=== PATIENT | male | born 1995 | race Caucasian/White ===

== ENCOUNTER 2020-12-05 15:29 | Outpatient (REF) | payer SELFPAY ==
[2020-12-07 15:38] LABS: COVID-19 RT-PCR UVMMC Result Negative (Negative)
== END 2020-12-05 15:30 | disposition home or self-care (01) ==
LOC: LBN 15:29
PROVIDERS: Visit Provider Nurse Practitioner Family
DX: Z20.822 Contact with and (suspected) exposure to COVID-19 (principal)
CPT/HCPCS: U0003

== ENCOUNTER 2021-05-02 19:18 | Emergency (ER) | payer SELFPAY ==
[2021-05-02 19:26] VITALS: BP 145/87; PULSE 87; RESP 18; TEMP 36.8; O2SAT 99
--- NOTE | 2021-05-02 20:05 | ED.GENADUL_ITS ---
Discharge Plan Disposition Patient Disposition: HOME Condition: Stable Discharge Details Clinical Impression: Dental infection Primary Care Provider: Unknown,Unknown ED Provider: Carlos Gaxiola Home Meds and New Rx's Prescriptions: New amoxicillin 875 mg tablet 875 mg PO BID Qty: 20 RF: 0 Discharge Instructions Instructions: Dental Abscess (ED) Additional Instructions: Amoxicillin as directed. [id number] Tylenol and/or Motrin as directed for discomfort. Cool and/or warm compresses every 2 hours for 20 minutes. Please watch for new or worsening symptoms and return to the ER for any concerns. Lastly, I would like you to contact your dentist who you are scheduled to see in June to see if they can see you any sooner. Medical Decision Making 25-year-old gentleman, current smoker, presents for right dental pain, lower, for the past 5 days. Patient has poor dentition at baseline. Clinically he appears well, nontoxic, airways patent, no trismus. Patient does have mild facial swelling and tenderness. No pointing abscess. No indication for I&D. Will initiate antibiotic therapy. We discussed [id number] Tylenol and/or Motrin, Orajel, salt water swish and spit, and cool and/or warm compresses. Standard discharge and return precautions provided. This documentation was generated using [employer] dictation system, please disregard any oddities of phrase or misspellings. Medical Records Medical records reviewed: Yes I reviewed the patient's medical records. HPI General Mode of arrival: ambulatory . Date/Time Provider Initiated Documentation: 05/02/21 20:00 . Limitations to Documentation: no limitations . Information obtained by: patient . HPI Narrative: This is a 25-year-old gentleman, current smoker, presenting for right lower dental pain and swelling over the past 5 days. Patient states that he contacted his dentist but cannot be seen until June. He denies fever, difficulty speaking or swallowing. No difficulty breathing. Has not taken any dumx-gya-iuxqoin medications for his sy mptoms. Patient reports that his teeth are poor at baseline and he needs a fair amount of dental work. Related Data Home Medications Medication Instructions Recorded Confirmed amoxicillin 875 mg PO BID #20 tab 05/02/21 Previous Rx's Medication Instructions Recorded amoxicillin 875 mg PO BID #20 tab 05/02/21 Allergies Allergy/AdvReac Type Severity Reaction Status Date / Time No Known Allergies Allergy Verified 12/05/20 13:32 General Stated Complaint: DentalOral MOMO: 4 Review of Systems Constitutional Constitutional: Denies fever(s) and Denies headache(s) ENT Ears, Nose, Mouth, and Throat: Denies headache(s), Denies neck pain and Denies sore throat Gastrointestinal Gastrointestinal: Denies nausea and Denies vomiting Musculoskeletal Musculoskeletal: Denies neck pain Integumentary/Breasts Skin/Breast: Denies erythema Neurologic Neurologic: Denies headache(s) PFSH All Active Problems (Updated 05/02/21 @ 20:10 by YONATAN Ortega) Dental infection (Acute) Surgical History Repair of inguinal hernia Tonsillectomy Social History Smoking/Tobacco Use Status: Current every day Tobacco Type: cigarettes Smoking risk assessment performed?: Yes Alcohol Intake: current Alcohol Intake frequency: holidays/special occasions only Drug use: Daily Substance use type: marijuana Do you feel safe at home: Yes Do you feel safe in your relationship?: Yes Exam Const General: cooperative, healthy appearing, comfortable and no acute distress Orientation: alert, awake and oriented x3 HENMT Head: normal to inspection, normocephalic and atraumatic Ears: external ears normal, TM's normal bilaterally and EAC's normal General nose exam: external nose normal Face images: 1. Mild swelling and discomfort. No pointing abscess, erythema, warmth or fluctuance Mouth: moist mucous membranes Teeth and gingiva: poor dentition (Throughout. Tooth 31 was small posterior fracture) Throat: posterior oropharynx normal Eyes General: appearance normal, both eyes and all related structures Conjunctivae: conjunctivae normal Neck Neck: normal visual inspection, full ROM, no lymphadenopathy, trachea midline, supple and nontender Resp Effort & Inspection: normal respiratory effort and able to speak in complete sentences Auscultation: clear to auscultation bilaterally Cardio Rate: regular rate Rhythm: regular rhythm Skin General skin exam: no rashes or lesions noted Neuro General: patient alert, patient awake, moves all extremities and no focal motor deficits Sensory Exam: no sensory deficits noted Psych Appearance: grossly normal Mental Status: mental status grossly normal Course Vital Signs Vital signs: Vital Signs Temperature 36.8 C 05/02/21 19:26 Pulse 87 05/02/21 19:26 Respiratory Rate 18 05/02/21 19:26 Blood Pressure 145/87 H 05/02/21 19:26 Pulse Oximetry 99 05/02/21 19:26 Temperature 36.8 C 05/02/21 19:26 Temperature Source Oral 05/02/21 19:26 Pulse 87 05/02/21 19:26 Respiratory Rate 18 05/02/21 19:26 Respiratory Effort 05/02/21 19:32 Blood Pressure 145/87 H 05/02/21 19:26 Blood Pressure Position Sitting 05/02/21 19:26 Pulse Oximetry 99 05/02/21 19:26 Oxygen Delivery Method Room Air 05/02/21 19:26 Oxygen Flow Rate 0 05/02/21 19:26 Pain Level 7 05/02/21 19:32 Comment 05/02/21 19:26
[2021-05-02] MEDS: Amoxicillin 875 MG TAB PO (20:07)
== END 2021-05-02 20:19 | disposition home or self-care (01) ==
PROVIDERS: Emergency Provider Physician Assistant
DX: K04.7 Periapical abscess without sinus (principal)
CPT/HCPCS: 99283

== ENCOUNTER 2021-05-28 10:39 | Outpatient (CLI) | payer SELFPAY ==
--- NOTE | 2021-05-28 10:30 | RT.EKG_ITS ---
APPROVED REPORT Exam: Resting ECG Reason for Exam: Chest Pain Patient Location: O HR:75 bpm ECG Measurements Heart Rate 75 AXIS NJ 159 P 75 QRSd 106 QRS 5 QT 368 T 57 QTc 410 Conclusion Sinus rhythm...normal P axis, V-rate 60- 99 ST elev, probable normal early repol pattern...ST elevation, age<55 Normal Electrocardiogram
[2021-05-30 14:53] LABS: COVID-19 RT-PCR UVMMC Result Positive (Negative)
== END 2021-05-28 10:40 | disposition home or self-care (01) ==
LOC: DI.CM 10:47
PROVIDERS: Visit Provider Nurse Practitioner Family
DX: R07.89 Other chest pain (principal); Z20.822 Contact with and (suspected) exposure to COVID-19
CPT/HCPCS: 93010; U0003

== ENCOUNTER 2022-01-29 10:54 | Inpatient (IN) | payer SELFPAY ==
[2022-01-29] VITALS (27 sets, daily range): BP systolic 115–144; BP diastolic 72–100; PULSE 84–133; RESP 11–29; TEMP 36.6–37.8; O2SAT 96–100
--- NOTE | 2022-01-29 10:45 | RT.EKG_ITS ---
APPROVED REPORT Exam: Resting ECG Reason for Exam: sob, chest pain Patient Location: E HR:121 bpm ECG Measurements Heart Rate 121 AXIS RI 145 P 73 QRSd 97 QRS 241 QT 310 T 60 QTc 440 Conclusion Sinus tachycardia...rate> 99 Probable left atrial enlargement...P >50mS, <-0.10mV V1 Left anterior fascicular block...axis(240,-40), init forces inf
--- NOTE | 2022-01-29 11:00 | DI.RAD_ITS ---
Exam(s) XR PORTABLE CHEST AP EXAM: XR PORTABLE CHEST AP CLINICAL HISTORY: L sided chest pain, sob TECHNIQUE: 2D digital imaging was performed. COMPARISON: CT CHEST ABD PELVIS WITH CONTRAST from 10/02/2016 FINDINGS: There is a large left pneumothorax with near complete collapse of the lung medially and inferiorly. There is slight mediastinal shift toward the right. The right lung appears clear. No pleural effusi on is seen. No rib fractures are identified. The heart size is normal. IMPRESSION: Large left pneumothorax. Results of this exam have been verbally communicated with the emergency department provider. DATA REPOSITORY: RADIATION DOSE DELIVERED:
[2022-01-29 11:23] LABS: Source Nasal/Nares
--- NOTE | 2022-01-29 11:24 | W.ED.GENAD ---
Discharge Plan Disposition Patient Disposition: [facility] INPATIENT Condition: Stable Discharge Details Clinical Impression: Spontaneous pneumothorax Admit Date/Time: 01/29/22 12:42 Admit Provider: Samantha Martell Attending Provider: Samantha Martell Primary Care Provider: Unknown,Unknown ED Provider: Chi Varela Medical Decision Making <YONATAN Ortega - Last Filed: 01/29/22 13:30> 26-year-old male, denies significant medical history, and vapes daily, presents for sudden left-sided chest pain and shortness of breath that began yesterday upon standing. Breath sounds diminished on the left, tachycardia. Most concerning for spontaneous pneumothorax. Plan to obtain IV access, obtain a cardiac work-up, Dr. Varela at bedside to perform ultrasound, concerning for left pneumothorax. Awaiting portable chest x-ray X-ray reveals pneumothorax. Patient moved to room 3, Dr. Varela placed chest tube, please see his note. Case then discussed with Dr. Martell, surgical team, who is agreeable to admission. This documentation was generated using [employer] system, please disregard any oddities of phrase or misspellings. Medical Records Medical records reviewed: Yes I reviewed the patient's medical records. Imaging Data Radiologic Study: Attestation: I personally reviewed and interpreted this imaging study as follows: Imaging: X-Ray Radiologist's impression: Exam(s) XR PORTABLE CHEST AP EXAM: XR PORTABLE CHEST AP CLINICAL HISTORY: L sided chest pain, sob TECHNIQUE: 2D digital imaging was performed. COMPARISON: CT CHEST ABD PELVIS WITH CONTRAST from 10/02/2016 FINDINGS: There is a large left pneumothorax with near complete collapse of the lung medially and inferiorly. There is slight mediastinal shift toward the right. The right lung appears clear. No pleural effusion is seen. No rib fractures are identified. The heart size is normal. IMPRESSION: Large left pneumothorax. Results of this exam have been verbally communicated with the emergency department provider. Radiologic Study #2: Attestation: I personally reviewed and interpreted this imaging study as follows: Imaging: X-Ray Radiologist's impression: Exam(s) XR PORTABLE CHEST AP EXAM: XR PORTABLE CHEST AP CLINICAL HISTORY: s/p chest tube insertion TECHNIQUE: 2D digital imaging was performed. COMPARISON: CR XR PORTABLE CHEST AP from 01/29/2022 FINDINGS: A left-sided chest tube has been inserted. The pigtail ARDS in the left lower lung field. LUNGS: The left lung is now re-expanded and clear. No pneumothorax is visible. HEART: Normal. AORTA: Normal. BONES: Unremarkable for age. Soft tissues: Unremarkable. IMPRESSION: No visible pneumothorax status post placement of left chest tube. Lab Data Lab results reviewed: Yes I reviewed the patient's lab results. Labs: Laboratory Tests Range/Units 01/29/22 01/29/22 01/29/22 11:07 11:18 11:18 WBC (4.4-10.8) 10^3/uL 11.08 H RBC (4.36-5.78) 10^6/uL 5.71 Hgb (13.5-17.5) g/dL 17.5 Hct (40.0-50.0) % 50.8 H MCV (80-95) fL 89 MCH (27.0-33.0) pg 30.6 MCHC (32.0-36.0) % 34.4 RDW (11.8-14.1) % 11.9 Plt Count (130-400) 10^3/uL 333 MPV (8.0-11.0) fL 9.9 Immature Gran % 0.2 Neutrophils % 72.4 Lymphocytes % 15.7 Monocytes % 8.1 Eosinophils % 3.1 Basophils % 0.5 Nucleated RBC % (0.0-0.3) % 0.0 Absolute Neutrophils (1.2-6.7) 10^3/uL 8.02 H Absolute Lymphocytes (1.2-3.4) 10^3/uL 1.74 Absolute Monocytes (0.1-0.8) 10^3/uL 0.90 H Absolute Eosinophils (0.0-0.7) 10^3/uL 0.34 Absolute Basophils (0.0-0.2) 10^3/uL 0.06 PT (9.3-11.0) sec INR (0.9-1.1) APTT (21.0-27.5) sec D-Dimer Cancelled Sodium (136-145) mmol/L 140 Potassium (3.5-5.1) mmol/L 4.4 Chloride (98-107) mmol/L 103 Carbon Dioxide (21.0-32.0) mmol/L 27.9 Anion Gap (3-11) mmol/L 9.1 BUN (7-18) mg/dL 17 Creatinine (0.70-1.30) mg/dL 1.0 Est GFR (CKD-EPI 2020) (mL/min/1.73m2) 106.45 Glucose (74-106) mg/dL 109 H Calcium (8.5-10.1) mg/dL 9.7 Magnesium (1.8-2.4) mg/dL 1.9 Total Bilirubin (0.2-1.0) mg/dL 0.9 AST (15-37) U/L 23 ALT (16-63) U/L 26 Alkaline Phosphatase (46-116) U/L 101 Troponin I (<or=60) ng/L < 50 NT-Pro-B Natriuret Pep (<300) pg/mL 37 Total Protein (6.4-8.2) g/dL 8.1 Albumin (3.4-5.0) g/dL 4.6 COVID-19 Source SARS-CoV-2 (PCR) (Negative) Range/Units 01/29/22 01/29/22 11:18 11:18 WBC (4.4-10.8) 10^3/uL RBC (4.36-5.78) 10^6/uL Hgb (13.5-17.5) g/dL Hct (40.0-50.0) % MCV (80-95) fL MCH (27.0-33.0) pg MCHC (32.0-36.0) % RDW (11.8-14.1) % Plt Count (130-400) 10^3/uL MPV (8.0-11.0) fL Immature Gran % Neutrophils % Lymphocytes % Monocytes % Eosinophils % Basophils % Nucleated RBC % (0.0-0.3) % Absolute Neutrophils (1.2-6.7) 10^3/uL Absolute Lymphocytes (1.2-3.4) 10^3/uL Absolute Monocytes (0.1-0.8) 10^3/uL Absolute Eosinophils (0.0-0.7) 10^3/uL Absolute Basophils (0.0-0.2) 10^3/uL PT (9.3-11.0) sec 9.9 INR (0.9-1.1) 1.0 APTT (21.0-27.5) sec 24.7 D-Dimer Sodium (136-145) mmol/L Potassium (3.5-5.1) mmol/L Chloride (98-107) mmol/L Carbon Dioxide (21.0-32.0) mmol/L Anion Gap (3-11) mmol/L BUN (7-18) mg/dL Creatinine (0.70-1.30) mg/dL Est GFR (CKD-EPI 2020) (mL/min/1.73m2) Glucose (74-106) mg/dL Calcium (8.5-10.1) mg/dL Magnesium (1.8-2.4) mg/dL Total Bilirubin (0.2-1.0) mg/dL AST (15-37) U/L ALT (16-63) U/L Alkaline Phosphatase (46-116) U/L Troponin I (<or=60) ng/L NT-Pro-B Natriuret Pep (<300) pg/mL Total Protein (6.4-8.2) g/dL Albumin (3.4-5.0) g/dL COVID-19 Source Nasal/Nares SARS-CoV-2 (PCR) (Negative) Negative ECG Data Attestation: I personally reviewed and interpreted this ECG (s) as follows: Interpretation: Sinus tachycardia, ventricular of 121. No STEMI <Chi Varela MD - Last Filed: 01/29/22 13:20> Date: 01/29/22 Time: 12:29 Note: Patient seen, examined, and discussed with YONATAN Gaxiola. I agree with treatment plan as discussed/documented. [id number] ultrasound of the lungs was performed and interpreted by me: There is an absence of lung sliding concerning for pneumothorax on the left. Chest x-ray was reviewed interpreted by me and reveals pneumothorax with complete lung collapse on the left. Patient provided verbal and written consent to emergent chest tube placement. Patient was given fentanyl 50 mcg for pain and Versed 1 mg as anxiolytic. Percutaneous chest tube was placed without complication and secured in place. Sterile dressing applied. Patient initially connected to wall suction and had significant discomfort. Will suction discontinued and remains on waterseal. --Patient now hemodynamically stable. Heart rate improved and blood pressure normal. 1315 --chest x-ray was reviewed and interpreted by me: AP view demonstrates appropriate position of pigtail catheter with resolution of pneumothorax. Case was discussed with Dr. Martell who is at bedside. She will admit the patient. Care transitioned to Dr. Martell at time of admission. Radiology interpretation of x-rays pending at time of admission. HPI <YONATAN Ortega - Last Filed: 01/29/22 13:30> General Mode of arrival: ambulatory. Date/Time Provider Initiated Documentation: 01/29/22 11:05. Limitations to Documentation: no limitations. Information obtained by: patient. History of Present Illness 26 year old M presents to the emergency department with the chief complaint of L chest pain/sob, described as moderate, with intensity rated at 7. Quality is described as sharp, and is localized to the chest and left. Patient neck. Patient started experiencing this hour(s) (20) and it has been constant. No relieving factors improve symptom(s), Other factors that worsen symptoms (Breathing) . Patient notes no other symptoms.. Patient did receive the following treatments prior to arrival, none Related Data Home Medications Medication Instructions Recorded Confirmed Unknown [No Known Home Meds] 01/29/22 01/29/22 Allergies Allergy/AdvReac Type Severity Reaction Status Date / Time No Known Allergies Allergy Verified 01/29/22 12:53 General Stated Complaint: Chest Pain MOMO: 2 Review of Systems <YONATAN Ortega - Last Filed: 01/29/22 13:30> Constitutional Constitutional: Denies fever(s) and Denies headache(s) ENT Ears, Nose, Mouth, and Throat: Denies headache(s) and Reports neck pain Cardiovascular Cardiovascular: Reports chest pain and Reports dyspnea Respiratory Respiratory: Denies cough and Reports dyspnea Gastrointestinal Gastrointestinal: Denies abdominal pain, Denies nausea and Denies vomiting Musculoskeletal Musculoskeletal: Denies back pain and Reports neck pain Integumentary/Breasts Skin/Breast: Denies rash Neurologic Neurologic: Denies headache(s) PFSH <YONATAN Ortega - Last Filed: 01/29/22 13:30> All Active Problems (Updated 01/29/22 @ 11:36 by YONATAN Ortega) Spontaneous pneumothorax (Acute) Surgical History Repair of inguinal hernia Tonsillectomy Social History Smoking/Tobacco Use Status: Current every day Tobacco Type: cigarettes Smoking risk assessment performed?: Yes Alcohol Intake: current Alcohol Intake frequency: holidays/special occasions only Drug use: Daily Substance use type: marijuana Do you feel safe at home: Yes Do you feel safe in your relationship?: Yes Exam <YONATAN Ortega - Last Filed: 01/29/22 13:30> Const General: cooperative, healthy appearing and no acute distress Orientation: alert and awake HENFL Head: normal to inspection, normocephalic and atraumatic Mouth: moist mucous membranes Eyes General: appearance normal, both eyes and all related structures Conjunctivae: conjunctivae normal Neck Neck: normal visual inspection, full ROM, trachea midline, supple and nontender Chest Chest: normal inspection of the chest and normal palpation of entire chest wall Resp Effort & Inspection: able to speak in complete sentences and labored (mild) Auscultation: diminished lung sounds on the left Cardio Rate: tachycardic (130s) Rhythm: regular rhythm GI Palpation: soft and nontender Back/Spine/Pelvis Back: No back tenderness Skin General skin exam: no rashes or lesions noted Neuro General: patient alert, patient awake, moves all extremities and no focal motor deficits Cognition: normal cognition Speech: speech normal Gait: normal gait Sensory Exam: no sensory deficits noted Extrem General: normal to inspection, full ROM, capillary refill normal, no pedal edema and no calf tenderness Psych Appearance: grossly normal Mental Status: mental status grossly normal Course <YONATAN Ortega - Last Filed: 01/29/22 13:30> Vital Signs Vital signs: Vital Signs Temperature 36.8 C 01/29/22 10:59 Pulse 133 H 01/29/22 10:59 Respiratory Rate 22 01/29/22 10:59 Blood Pressure 135/91 H 01/29/22 10:59 Pulse Oximetry 96 01/29/22 10:59 Temperature 36.8 C 01/29/22 10:59 Temperature Source Oral 01/29/22 10:59 Pulse 133 H 01/29/22 10:59 Respiratory Rate 22 01/29/22 10:59 Respiratory Effort Short of Breath 01/29/22 11:06 Blood Pressure 135/91 H 01/29/22 10:59 Blood Pressure Position Sitting 01/29/22 10:59 Pulse Oximetry 96 10/05/22 10:59 Oxygen Delivery Method Room Air 01/29/22 10:59 Oxygen Flow Rate 0 01/29/22 10:59 Pain Level 6 01/29/22 10:59 Lab/Test Results Lab/Test Results: Laboratory Tests Range/Units 01/29/22 01/29/22 11:07 11:18 D-Dimer Cancelled COVID-19 Source Nasal/Nares <Chi Varela MD - Last Filed: 01/29/22 13:20> Chest Tube Chest Tube 1: Chest Tube Location: anterior axillary line Size of Malay Tube (mm): 14 Chest Tube Prep: betadine prep and sterile drapes applied Local Anesthetic: Lidocaine 1% Amount of anesthesia used (mL): 5 Incision Made With: #11 blade Post Procedure: sutured to skin and sterile dressing applied Post Procedure CXR?: Yes Patient Tolerated Procedure: Yes Complications: pain <Chi Varela MD - Last Filed: 01/29/22 13:20> Critical Care Time Critical Care Time: Yes Total Critical Care Time: 38 Attestation: I spent greater than 38 minutes addressing this patient's immediate life threats. Please see MDM section of note. This time was spent engaged in work directly related to the patient's care, exclusive of separate procedures, and failure to initiate these interventions would have likely resulted in clinically significant or life threatening deterioration in the patient's condition.
--- NOTE | 2022-01-29 11:30 | DI.RAD_ITS ---
Exam(s) XR PORTABLE CHEST AP EXAM: XR PORTABLE CHEST AP CLINICAL HISTORY: s/p chest tube insertion TECHNIQUE: 2D digital imaging was performed. COMPARISON: CR XR PORTABLE CHEST AP from 01/29/2022 FINDINGS: A left-sided chest tube has been inserted. The pigtail ARDS in the left lower lung field. LUNGS: The left lung is now re-expanded and clear. No pneumothorax is visible. HEART: Normal. AORTA: Normal. BONES: Unremarkable for age. Soft tissues: Unremarkable. IMPRESSION: No visible pneumothorax status post placement of left chest tube. DATA REPOSITORY: RADIATION DOSE DELIVERED:
[2022-01-29 11:40] LABS: Abs Immature Grans 0.02 10^3/uL (0.0-0.06); Absolute Basophil Count 0.06 10^3/uL (0.0-0.2); Absolute Eosinophil Count 0.34 10^3/uL (0.0-0.7); Absolute Lymphocyte Count 1.74 10^3/uL (1.2-3.4); Absolute Neutrophil Count 8.02 10^3/uL (1.2-6.7); Basophils % 0.5; Eosinophils % 3.1; HCT 50.8 % (40.0-50.0); HGB 17.5 g/dL (13.5-17.5); Immature Grans % 0.2; Lymphocytes % 15.7; MCH 30.6 pg (27.0-33.0); MCHC 34.4 % (32.0-36.0); MCV 89 fL (80-95); MPV 9.9 fL (8.0-11.0); Monocytes % 8.1; Neutrophils % 72.4; Platelet Count 333 10^3/uL (130-400); RBC 5.71 10^6/uL (4.36-5.78); RDW 11.9 % (11.8-14.1); RDW-SD 38.8 fL; WBC 11.08 10^3/uL (4.4-10.8)
[2022-01-29 11:44] LABS: PTT Activated 24.7 sec (21.0-27.5); Prothrombin Time 9.9 sec (9.3-11.0)
[2022-01-29] MEDS: Midazolam 2 MG/2 ML VIAL (11:45)
[2022-01-29 11:54] LABS: ALT 26 U/L (16-63); AST 23 U/L (15-37); Albumin 4.6 g/dL (3.4-5.0); Alkaline Phosphatase 101 U/L (46-116); Anion Gap 9.1 mmol/L (3-11); BUN 17 mg/dL (7-18); Bilirubin, Total 0.9 mg/dL (0.2-1.0); CO2 27.9 mmol/L (21.0-32.0); Calcium 9.7 mg/dL (8.5-10.1); Chloride 103 mmol/L (98-107); Estimated GFR 106.45 (mL/min/1.73m2); Glucose 109 mg/dL (74-106); Magnesium 1.9 mg/dL (1.8-2.4); NT-proBNP 37 pg/mL (<300); Potassium 4.4 mmol/L (3.5-5.1); Sodium 140 mmol/L (136-145); Total Protein 8.1 g/dL (6.4-8.2); Troponin I < 50 ng/L (<or=60)
[2022-01-29 12:02] LABS: COVID-19 PCR Negative (Negative)
[2022-01-29] MEDS: Lidocaine 2% Multi-Dose 50 ML VIAL (12:25)
[2022-01-29] MEDS: fentaNYL 100 MCG/2 ML VIAL (12:25)
--- NOTE | 2022-01-29 13:11 | DI.RAD_ITS ---
Exam(s) XR CHEST 1V IN DI DEPT EXAM: XR CHEST 1V IN DI DEPT CLINICAL HISTORY: chest pain, lateral view please TECHNIQUE: 2D digital imaging was performed. COMPARISON: No exams were available for comparison FINDINGS: A lateral view was performed the chest tube is located anteriorly in the left mid chest. No pneumoth orax is visible. Exam is somewhat limited by patient arm positioning. The lungs appear clear. IMPRESSION: chest tube projects anteriorly in the left chest DATA REPOSITORY: RADIATION DOSE DELIVERED:
[2022-01-29] MEDS: MORPHine 2 MG/ML SYR IVP (13:35)
[2022-01-29] MEDS: Normal Saline Flush 10 ML SYR ×2 (13:36→14:30)
[2022-01-29] MEDS: FAMOTIDINE 20 MG in Normal Saline 100 ML 400 MG IVPB (14:30)
[2022-01-29] MEDS: Enoxaparin 40 MG/0.4 ML SYR SC (14:32)
[2022-01-29] MEDS: Docusate Sodium 100 MG CAP PO ×2 (14:32→19:47)
[2022-01-29] MEDS: Acetaminophen 325 MG TAB 650 MG PO ×2 (15:30→19:47)
[2022-01-29] MEDS: traMADol 50 MG TAB PO (16:18)
--- NOTE | 2022-01-29 17:10 | HPE_ITS ---
Date of service: 01/29/22 Time of Service: 17:10 Assessment and Plan Assessment and plan (1) Spontaneous pneumothorax: Status: Acute Assessment and plan: Sae is a pleasant 26 year old male who smokes, that came to the ER with a spontaneous pneumothorax. I spend 45 minutes with Sae explaining what a pneumothorax was and how it happened. We discussed treatment plan and expectations. He needs to use his incentive spirometer. The goal is for him to get to at least 2000 if not higher. He needs to cough. Continue with Chest tube to suction until tomorrow CXR in the am History of Present Illness Consults Consult date: 01/29/22 Requesting physician: Chi Varela Param rative: Sae is a pleasant 26 year old who came to the ERR today due to SOB and chest pain. He tells me that last night as he was getting of the toilet he felt left sided chest pain and then became sob. He went to sleep not thinking much about it, but when he woke up and still had SOB he came to the ER. Lab work was essentially normal. CXR which I reviewed showed a complete collapse of his left lung. Chest tube was placed in the ER by Dr. Varela. Follow up CXR showed re-inflation of his lung. Review of Systems Constitutional Constitutional: Denies fever(s), Denies headache(s), Denies poor appetite and Denies weight loss Eyes Eyes: Denies change in vision ENT Ears, Nose, Mouth, and Throat: Denies dysphagia, Denies headache(s) and Denies hoarseness Cardiovascular Cardiovascular: Reports as per HPI Respiratory Respiratory: Reports as per HPI Gastrointestinal Gastrointestinal: Reports system reviewed and no additional complaints, except as documented and Denies dysphagia Genitourinary Genitourinary: Reports system reviewed and no additional complaints, except as documented Musculoskeletal Musculoskeletal: Reports system reviewed and no additional complaints, except as documented Integumentary/Breasts Skin/Breast: Reports system reviewed and no additional complaints, except as documented Neurologic Neurologic: Reports system reviewed and no additional complaints, except as documented and Denies headache(s) Psychiatric Psychiatric: Reports system reviewed and no additional complaints, except as documented Endocrine Endocrine: Reports system reviewed and no additional complaints, except as documented PFSH All Active Problems (Updated 01/29/22 @ 17:17 by Samantha Martell MD) Spontaneous pneumothorax (Acute) Medical History (Updated 01/29/22 @ 17:17 by Samantha Martell MD) Bey Gogo lesion (01/18/15) Surgical History (Updated 01/29/22 @ 17:17 by Samantha Martell MD) Status post inguinal hernia repair Status post tonsillectomy (05/28/15) Social History Smoking/Tobacco Use Status: Current every day Tobacco Type: cigarettes Smoking risk assessment performed?: Yes Alcohol Intake: current Alcohol Intake frequency: holidays/special occasions only Drug use: Daily Substance use type: marijuana Do you feel safe at home: Yes Do you feel safe in your relationship?: Yes Meds Allergies and Home Medications Allergies Allergy/AdvReac Type Severity Reaction Status Date / Time No Known Allergies Allergy Verified 01/29/22 12:53 Home Medications Medication Instructions Recorded Confirmed Type Unknown [No Known Home Meds] 01/29/22 01/29/22 History Exam Const General: cooperative, comfortable and no acute distress Orientation: alert and oriented x3 HENMT Head: normocephalic and atraumatic Eyes Pupils: PERRL Resp Effort & Inspection: normal respiratory effort Auscultation: clear to auscultation bilaterally Cardio Rate: regular rate Rhythm: regular rhythm Results Imaging Chest x-ray: image reviewed Labs Result diagrams: 01/29/22 11:18 01/29/22 11:18 Labs: Laboratory Results - last 24 hr 01/29/22 01/29/22 01/29/22 11:07 11:18 11:18 WBC 11.08 H RBC 5.71 Hgb 17.5 Hct 50.8 H MCV 89 MCH 30.6 MCHC 34.4 RDW 11.9 Plt Count 333 MPV 9.9 Immature Gran % 0.2 Neutrophils % 72.4 Lymphocytes % 15.7 Monocytes % 8.1 Eosinophils % 3.1 Basophils % 0.5 Nucleated RBC % 0.0 Absolute Neutrophils 8.02 H Absolute Lymphocytes 1.74 Absolute Monocytes 0.90 H Absolute Eosinophils 0.34 Absolute Basophils 0.06 PT INR APTT D-Dimer Cancelled Sodium 140 Potassium 4.4 Chloride 103 Carbon Dioxide 27.9 Anion Gap 9.1 BUN 17 Creatinine 1.0 Est GFR (CKD-EPI 2020) 106.45 Glucose 109 H Calcium 9.7 Magnesium 1.9 Total Bilirubin 0.9 AST 23 ALT 26 Alkaline Phosphatase 101 Troponin I < 50 NT-Pro-B Natriuret Pep 37 Total Protein 8.1 Albumin 4.6 COVID-19 Source SARS-CoV-2 (PCR) 01/29/22 01/29/22 01/29/22 11:18 11:18 12:46 WBC RBC Hgb Hct MCV MCH MCHC RDW Plt Count MPV Immature Gran % Neutrophils % Lymphocytes % Monocytes % Eosinophils % Basophils % Nucleated RBC % Absolute Neutrophils Absolute Lymphocytes Absolute Monocytes Absolute Eosinophils Absolute Basophils PT 9.9 INR 1.0 APTT 24.7 D-Dimer Sodium Potassium Chloride Carbon Dioxide Anion Gap BUN Creatinine Est GFR (CKD-EPI 2020) Glucose Calcium Magnesium Total Bilirubin AST ALT Alkaline Phosphatase Troponin I NT-Pro-B Natriuret Pep Total Protein Albumin COVID-19 Source Nasal/Nares Cancelled SARS-CoV-2 (PCR) Negative Cancelled Last Vital Signs Temp 100.0 F H 01/29/22 15:25 Pulse 100 H 01/29/22 15:25 Resp 16 01/29/22 15:25 BP 119/72 01/29/22 15:25 Pulse Ox 98 01/29/22 15:25
[2022-01-29 17:32] LABS: Troponin I < 50 ng/L (<or=60)
[2022-01-29] MEDS: Normal Saline Flush 10 ML SYR IVP (19:48)
[2022-01-30] MEDS: FAMOTIDINE 20 MG in Normal Saline 100 ML 400 MG IVPB ×2 (02:15→13:48)
[2022-01-30 03:58] VITALS: BP 124/81; PULSE 82; RESP 18; TEMP 36.6; O2SAT 98
[2022-01-30 07:25] VITALS: BP 130/78; PULSE 63; RESP 18; TEMP 36.6; O2SAT 99
--- NOTE | 2022-01-30 08:30 | DI.RAD_ITS ---
Exam(s) XR PORTABLE CHEST AP EXAM: XR PORTABLE CHEST AP CLINICAL HISTORY: f/u on chest tube and PTX TECHNIQUE: COMPARISON: CR XR CHEST 1V IN DI DEPT from 01/29/2022 CR XR PORTABLE CHEST AP from 01/29/2022 FINDINGS: Left thoracotomy tube is again noted in position. No gross recurrent left pneumothorax or pleural ef fusion. Right lung remains clear and well expanded. IMPRESSION: RADIATION DOSE DELIVERED: Total DLP
[2022-01-30] MEDS: Docusate Sodium 100 MG CAP PO ×3 (08:38→19:17)
[2022-01-30] MEDS: Psyllium PKT 1 EACH PO (08:38)
[2022-01-30] MEDS: Normal Saline Flush 10 ML SYR IVP ×3 (08:38→20:23)
--- NOTE | 2022-01-30 09:33 | PDOC.CMIN ---
- If Service Date Differs Date of service: 01/30/22 Time of Service: 09:33 Care Management Initial Assess REASON FOR HOSPITALIZATION:: Spontaneous Pneumothorax PAST MEDICAL HISTORY/PAST SURGICAL HISTORY:: Medical History (Updated 01/29/22 @ 17:17 by Samantha Martell MD). Bey Gogo lesion (01/18/15). Surgical History (Updated 01/29/22 @ 17:17 by Samantha Martell MD). Status post inguinal hernia repair. Status post tonsillectomy (05/28/15) PREVIOUS FUNCTIONAL STATUS/SOCIAL/FAMILY SUPPORTS:: Resides in [place], mother Rosi resides nearby in [place]. Wilner is independent at baseline in the community. ADVANCE DIRECTIVES:: None on file Has patient been provided with info about the portal/API?: Yes Did the patient sign up for the portal?: Yes CODE STATUS:: Full Code INSURANCE COVERAGE / FINANCIAL ISSUES:: None on file, [facility] referral faxed. CURRENT HOME/COMMUNITY SERVICES/EQUIPMENT:: None currently. PRIMARY CARE PHYSICIAN:: None currently, attachment to be offered. POTENTIAL DISCHARGE NEEDS:: PCP F/U, Insurance navigator referral. PATIENT/FAMILY EDUCATION NEEDS:: Review discharge instructions, discuss Ask Me Three. ANTICIPATED BARRIERS TO DISCHARGE:: None identified. TRANSPORTATION:: Via private vehicle with family. PLAN:: Sae will discharge to home when ready per MD. He will follow up with his PCP and plan of care as prescribed. He will transport via private vehicle with family, no additional services anticipated at this time. PCP and insurance navigation to be offered.
[2022-01-30 11:24] VITALS: BP 127/83; PULSE 68; RESP 18; TEMP 37; O2SAT 97
--- NOTE | 2022-01-30 12:34 | W.PM.PROGNOT ---
Date of Service Date of service: 01/30/22 Time of Service: 12:35 Assessment and Plan Assessment and plan (1) Spontaneous pneumothorax: Status: Acute Assessment and plan: I changed his chest tube over to waterseal around 8 AM. I will follow-up with chest x-ray this afternoon. Subjective Subjective Interval history since last seen: Still looks great today. He says he feels better. He denies any dyspnea overnight. He is got a little bit of pain associated with the chest tube site, but it is tolerable Exam Chest Chest: normal inspection of the chest and no crepitus Resp Effort & Inspection: normal respiratory effort and able to speak in complete sentences Auscultation: clear to auscultation bilaterally Objective Last Vital Signs Temp 98.6 F 01/30/22 11:24 Pulse 68 01/30/22 11:24 Resp 18 01/30/22 11:24 BP 127/83 01/30/22 11:24 Pulse Ox 97 01/30/22 11:24 Laboratory Results - last 24 hr 01/29/22 01/29/22 12:46 17:07 Troponin I < 50 COVID-19 Source Cancelled SARS-CoV-2 (PCR) Cancelled
--- NOTE | 2022-01-30 13:25 | DI.RAD_ITS ---
Exam(s) XR PORTABLE CHEST AP EXAM: XR PORTABLE CHEST AP CLINICAL HISTORY: pneumothorax TECHNIQUE: COMPARISON: CR XR PORTABLE CHEST AP from 01/30/2022 FINDINGS: Portable AP chest at 1255 hours. In comparison with examination obtained earlier this morning, there is note again made of left thoracotomy tube in place, there has been interval reaccumulation of a mo derate to large sized left pneumothorax. No change in appearance of the right lung. IMPRESSION: RADIATION DOSE DELIVERED: Total DLP
[2022-01-30] MEDS: Enoxaparin 40 MG/0.4 ML SYR SC (13:48)
[2022-01-30 15:08] VITALS: BP 118/76; PULSE 80; RESP 18; TEMP 37.1; O2SAT 98
[2022-01-30 19:17] VITALS: BP 129/88; PULSE 74; RESP 18; TEMP 37.2; O2SAT 98
[2022-01-30] MEDS: Acetaminophen 325 MG TAB 650 MG PO (19:17)
--- NOTE | 2022-01-30 21:03 | NUR.NOTE ---
Patient rang and reported that his chest tube is leaking blood. On assessment fresh blood noted coming from around the chest tube insertion site. Patient denied any tugging or pulling at the tube while doing activities. Dressing was reinforced. Same reported to CCs on duties. MD informed advised to either change or reinforced dressing.
[2022-01-30 23:05] VITALS: BP 123/79; PULSE 79; RESP 16; TEMP 36.8; O2SAT 97
[2022-01-31] VITALS (9 sets, daily range): BP systolic 114–147; BP diastolic 56–89; PULSE 67–83; RESP 16–19; TEMP 36.5–37.2; O2SAT 97–99
--- NOTE | 2022-01-31 | DI.RAD_ITS ---
Exam(s) XR PORTABLE CHEST AP EXAM: XR PORTABLE CHEST AP CLINICAL HISTORY: pneumothorax. TECHNIQUE: 2D digital imaging was performed. COMPARISON: CR XR PORTABLE CHEST AP from 01/30/2022 FINDINGS: Single AP portable view. Heart size is upper normal. The mediastinum is not widened. There has been interval placement of a pigtail catheter on the left side and re-expansion of the left lung with no remaining pneumothorax. No infiltrates. No pleural effusions. No shift of midline st ructures. IMPRESSION: There has been complete re-expansion of the left lung. DATA REPOSITORY: RADIATION DOSE DELIVERED:
[2022-01-31] MEDS: FAMOTIDINE 20 MG in Normal Saline 100 ML 400 MG IVPB ×2 (02:13→14:27)
[2022-01-31] MEDS: Psyllium PKT 1 EACH PO (08:27)
[2022-01-31] MEDS: Normal Saline Flush 10 ML SYR IVP ×3 (08:28→19:46)
[2022-01-31] MEDS: Docusate Sodium 100 MG CAP PO ×3 (08:28→19:47)
[2022-01-31] MEDS: Ketorolac 30 MG/ML VIAL IVP ×2 (09:28→17:53)
--- NOTE | 2022-01-31 09:47 | CMPROGNOTE_ITS ---
- If Service Date Differs Date of service: 01/31/22 Time of Service: 09:48 Care Management Progress Note S/O: Ron was sitting up in his chair when CM met with him. His girlfriend was in the room, visiting. Ron reported that he had not seen the MD yet today, and is unsure of an expectation for how long he will remain at [facility]. He stated that once he is ready for discharge, he will require a note for his employer, stating that he has been hospitalized, and for how long he should remain out of work. CM will continue to follow. A: Sae is a 26 year old male admitted to [facility] on 01/29/22 with spontaneous pneumothorax. P: Sae will discharge to home when ready per MD. He will follow up with his PCP and plan of care as prescribed. He will transport via private vehicle with family, no additional services anticipated at this time. PCP and insurance navigation to be offered.
[2022-01-31] MEDS: Enoxaparin 40 MG/0.4 ML SYR SC (14:29)
[2022-01-31] MEDS: Acetaminophen 325 MG TAB 650 MG PO ×2 (14:31→20:48)
[2022-01-31] MEDS: Normal Saline 50 ML 200 ML IV (17:56)
--- NOTE | 2022-01-31 20:44 | W.PM.PROGNOT ---
Date of Service Date of service: 01/31/22 Time of Service: 16:30 Assessment and Plan Assessment and plan (1) Spontaneous pneumothorax: Status: Acute Assessment and plan: -d/w pt importance of tobacco cessation- to prevent further blebs and lung damage. -pt has been doing IS. -stop suction. If there is any increase in CP or SOB return to suction. hopefully can d/c tube in am -should have CT looking for further blebs. (2) Tobacco dependency: Status: Acute (3) Poor dentition: Status: Acute Subjective Subjective Interval history since last seen: Pt is doing well. no headaches. No CP or SOB. no productive cough. no dysuria. no leg pain or swelling. His cxr today shows no PTX. there is no air leak. He does not have a cough. He has been doig his IS. Exam Resp Other: CTA b/l. no crepitus. no air leak. Line site is dressed. Objective Last Vital Signs Temp 37.2 C 01/31/22 19:45 Pulse 76 01/31/22 19:45 Resp 16 01/31/22 19:45 BP 139/86 01/31/22 19:45 Pulse Ox 99 01/31/22 19:45
[2022-02-01 01:00] VITALS: RESP 16; O2SAT 99
[2022-02-01] MEDS: FAMOTIDINE 20 MG in Normal Saline 100 ML 400 MG IVPB (01:31)
[2022-02-01 03:20] VITALS: BP 121/81; PULSE 94; RESP 18; TEMP 36.5; O2SAT 98
[2022-02-01 06:14] VITALS: RESP 16; O2SAT 99
[2022-02-01 06:21] LABS: Platelet Count 288 10^3/uL (130-400)
[2022-02-01] MEDS: Acetaminophen 325 MG TAB 650 MG PO ×2 (06:25→09:43)
[2022-02-01 07:26] VITALS: BP 129/79; PULSE 84; RESP 17; TEMP 36.6; O2SAT 99
--- NOTE | 2022-02-01 08:20 | DI.RAD_ITS ---
Exam(s) XR CHEST 2V PA LATERAL EXAM: XR CHEST 2V PA LATERAL CLINICAL HISTORY: f/u PTX TECHNIQUE: COMPARISON: CR XR PORTABLE CHEST AP from 01/31/2022 FINDINGS: There is a left thoracotomy tube in position, unchanged from prior study. No persistent or recurrent pneumothorax noted. Lungs are clear. No pleural effusion. IMPRESSION: RADIATION DOSE DELIVERED: Total DLP
[2022-02-01] MEDS: Psyllium PKT 1 EACH PO (08:23)
[2022-02-01] MEDS: Docusate Sodium 100 MG CAP PO (08:23)
[2022-02-01] MEDS: Normal Saline Flush 10 ML SYR IVP ×2 (08:24→12:15)
--- NOTE | 2022-02-01 10:13 | DI.VRAD_ITS ---
PROCEDURE INFORMATION: Exam: XR Chest Exam date and time: 02/01/2022 8:14 AM Age: 26 years old Clinical indication: Other: F/u ptx TECHNIQUE: Imaging protocol: Radiologic exam of the chest. Views: 2 views. COMPARISON: CR XR PORTABLE CHEST AP 01/31/2022 10:13 AM FINDINGS: Left pigtail catheter noted in place directed left hilum Lungs: Unremarkable. No consolidation. Pleural spaces: Question trace lucency adjacent to the left hilum and at the left apex No pleural effusion. Heart/Mediastinum: No cardiomegaly. Bones/joints: Unremarkable. IMPRESSION: Question trace residual left-sided pneumothorax Dictated and Authenticated by: Kiran Cruz MD. Ordering:BENJAMIN Ferrara MD
[2022-02-01 12:00] VITALS: BP 141/85; PULSE 82; RESP 18; TEMP 37; O2SAT 99
[2022-02-01] MEDS: Ketorolac 30 MG/ML VIAL IVP (12:15)
--- NOTE | 2022-02-01 12:45 | W.PM.PROGNOT ---
Date of Service Date of service: 02/01/22 Time of Service: 12:45 Assessment and Plan Assessment and plan (1) Spontaneous pneumothorax: Status: Acute Assessment and plan: Patient needs to keep the dressing in place until Thursday. Cover to shower or sponge bath. Continue incentive spirometry. I discussed with him the importance of all tobacco cessation including chewing and vaping. Also it is important that all the people around him stop smoking. If he has any chest pain or shortness of breath or coughing up blood he should return to the emergency department. Follow-up myself or Dr. Aguirre in clinic next week. We will need to obtain an CT on outpatient basis to look for more blebs. I again discussed with him the importance of avoiding any further tobacco products. And the concept of emphysema and bleb formation. If he does have significant labs he should consider surgery. the most important factor is to stop smoking. He should continue his spirometry at home. He can use Tylenol and ice for any discomfort. He can return to work on 04 February. No lifting over 10 pounds for 2 weeks. (2) Tobacco dependency: Status: Acute (3) Poor dentition: Status: Acute Subjective Subjective Interval history since last seen: Pt is doing well. no headaches. No CP or SOB. no productive cough. no dysuria. no leg pain or swelling. He is not having any pain. He is not having any airleak. He does not feel short of breath. Has not had any productive cough. He has not had any fluid out in the past 24 hours. His chest x-ray today remained stable. And then the catheter was removed. The site is clean dry and intact. Chest dressing is placed. Exam Resp Other: Lungs are clear to auscultation. Tube site is clean dry and intact. Tube is removed and an occlusive dressing placed Objective Last Vital Signs Temp 37 C 02/01/22 12:00 Pulse 82 02/01/22 12:00 Resp 18 02/01/22 12:00 BP 141/85 H 02/01/22 12:00 Pulse Ox 99 02/01/22 12:00 Laboratory Results - last 24 hr 02/01/22 05:38 Plt Count 288
--- NOTE | 2022-02-01 13:03 | W.PM.DS.N ---
Date of service: 02/01/22 Time of Service: 14:15 DS: Diagnosis Discharge Diagnosis (1) Spontaneous pneumothorax: Status: Acute (2) Tobacco dependency: Status: Acute (3) Poor dentition: Status: Acute Discharge Plan Disposition Patient Disposition: HOME Condition: Stable Discharge Details Reason For Visit: Spontaneous Pneumothorax Admit Date/Time: 01/29/22 12:42 Admit Provider: Samantha Martell Attending Provider: Samantha Martell Primary Care Provider: Unknown,Unknown Hospital Course Hospital Course: Patient was admitted on 01/29 with a spontaneous pneumothorax on the left. He is a smoker. No trauma was involved. A pigtail catheter was inserted and placed to suction. As of 01/31 the lung was not fully inflated with no airleak. It was placed to waterseal for 18 hours. There is no recurrence of the pneumothorax or air leak and the tube was removed. Post removal chest x-ray shows lung is fully inflated and there is no pneumonia or other complications. Patient is given instructions in activity work and warning signs. He will follow-up in the clinic next week. We will call with an appointment. He does not require pain medication. No lifting over 10 pounds for 2 weeks. Will need a follow-up chest x-ray to assess for blebs. He was given information on the necessity and importance of tobacco cessation. Patient was discharged home in stable and satisfactory condition Home Meds and New Rx's Prescriptions: No Action No Known Home Meds Discharge Instructions Additional Instructions: Ice as needed for pain to left chest. 20 minutes on and 20 minutes off. Ice keeps the swelling down and swelling causes pain. Make sure you wrap the ice pack in a towel and don't apply directly to the skin. -No driving x 24 hrs. -Do not remove chest dressing until Thursday. If it comes loose, reinforce with additional tape. -Follow-up with Dr. Freeman in 1 week. My clinic should call on Thursday to arrange an appointment. If you do not hear from the clinic, please call: [phone] to schedule an appointment. -A regular diet is fine. -no straining to move bowels. Straining to move your bowels is the same as lifting 50#'s. -pain meds are very constipating: if you do not move your bowels daily take a dose of OTC milk of magnesia -Cover chest dressing to shower. -You may find that your appetite is smaller. Eat 3-6 small meals throughout the day. It is important to drink lots of water after being in the hospital, 6-10 glasses a day. -If you were given an incentive spirometry (breathing batch and furnace manager?), continue to do this 10x/hour while awake. -We do want you up walking, at least 5-6 times per day. This is very important to prevent pneumonia and blood clots. You can climb stairs, take them slowly. -No lifting over 10 pounds for 2 wks -You can return 02/04. RTW letter written. -You may find that you are very tired after surgery- this is normal. -please do not smoke for a minimum of 72 hours. Complete cessation of all tobacco products is highly recommended. -If you have any severe chest pain, shortness of breath, or coughing up blood, please return to the emergency room. Activity:: see above Equipment/Supplies:: No Equipment Needed Diet:: As Tolerated Discharge Orders Discharge Orders: Discharge Order (Routine); Ordered 02/01/22 Ordered By: Alem Freeman DS: Summary Time Spent with Patient providing and/or coordinating discharge services: Less than 30 minutes Status at Discharge Functional status at discharge: independent ambulation Overall status at discharge: patient is back to baseline Mental Status: mental status grossly normal Speech and Movement: speech and movement normal Mood: congruent mood Affect: normal affect Exam Psych Mental Status: mental status grossly normal Speech and Movement: speech and movement normal Mood: congruent mood Affect: normal affect DS: Data Vitals/I&O Vitals and I&O: Vital Signs Temperature 37 C 02/01/22 12:00 Temperature Source Tympanic 02/01/22 12:00 Pulse 82 02/01/22 12:00 Pulse Rhythm Regular 02/01/22 09:07 Pulse 84 01/29/22 12:31 Respiratory Rate 18 02/01/22 12:00 Respiratory Effort Non-Labored 02/01/22 09:07 Respiratory Depth Normal 02/01/22 09:07 Respiratory Pattern Normal 02/01/22 09:07 Blood Pressure 141/85 H 02/01/22 12:00 Blood Pressure Mean 91 01/29/22 12:31 Blood Pressure Position Sitting 01/29/22 10:59 Pulse Oximetry 99 02/01/22 12:00 Oxygen Delivery Method Room Air 02/01/22 12:35 Oxygen Flow Rate 0 02/01/22 12:35 Pain Level 0 02/01/22 12:15 Comment 01/31/22 19:45 Intake & Output 01/31/22 02/01/22 02/01/22 23:59 11:59 23:59 Intake Total 352 / 454 102 / 102 Output Total 450 / 1350 Balance -98 / -896 102 / 102 Intake: IV 152 / 254 102 / 102 Oral 200 / 200 Output: Urine 450 / 1350 Other: Urine Color Dark Martha Urine Appearance Clear Urine Odor Strong Comment pt has been voiding in the urinal all day, and girlfriend has been emptying it. patient voids independently Voiding Methods Urinal Toilet Data Completed and Pending Labs on day of discharge: Labs from last 24 hours 02/01/22 05:38 Plt Count 288 PFSH All Active Problems (Updated 01/31/22 @ 20:46 by Alem Freeman DO) Poor dentition (Acute) Tobacco dependency (Acute) Spontaneous pneumothorax (Acute) Medical History (Updated 01/31/22 @ 20:46 by Alem Freeman DO) Bey Gogo lesion (01/18/15) Surgical History (Updated 01/29/22 @ 17:17 by Samantha Martell MD) Status post inguinal hernia repair Status post tonsillectomy (05/28/15) Social History Smoking/Tobacco Use Status: Current every day Tobacco Type: cigarettes Smoking risk assessment performed?: Yes Alcohol Intake: current Alcohol Intake frequency: holidays/special occasions only Drug use: Daily Substance use type: marijuana Do you feel safe at home: Yes Do you feel safe in your relationship?: Yes
--- NOTE | 2022-02-01 14:10 | DI.RAD_ITS ---
Exam(s) XR CHEST 2V PA LATERAL EXAM: XR CHEST 2V PA LATERAL CLINICAL HISTORY: removal tube TECHNIQUE: 2D digital imaging was performed. COMPARISON: CR,XR XR CHEST 2V PA LATERAL from 02/01/2022 FINDINGS: The heart is not enlarged. The lungs are clear and well expanded. No pleural effusion seen. Mediastin al contours appear intact. IMPRESSION: Normal chest. RADIATION DOSE DELIVERED: Total DLP
--- NOTE | 2022-02-01 14:56 | CMDISCH_ITS ---
- If Service Date Differs Date of service: 02/01/22 Time of Service: 14:56 LACE Index Scoring Tool - Questions: Length of Stay (in days): 3 Acuity (Admit via E.D.?): Yes E.D. Visits: 2 - Answers: Total Score: 8 Risk of Readmission: Low Risk Care Management Discharge Reason for Hospitalization: Spontaneous Pneumothorax Discharge Plan: Sae is discharged home with no services. He will follow up with his surgeon and discharge plan of care as prescribed. He is currently wit hout a PCP and insurance. Referrals have been made to [facility] and to the on-call t-doc. He is transported home by family via private vehicle. Patient/Family Education Needs: Review of discharge instructions re medications, limitations, and follow up plan of care; discuss Ask Me Three.
== END 2022-02-01 15:05 | disposition home or self-care (01) | DRG 201 ==
LOC: ER 13:11 → MS 13:26
PROVIDERS: Family Medicine; Physician Assistant; Admitting Provider Surgery; Emergency Provider Student in an Organized Health Care Education/Training Program; Visit Provider Surgery
DX: J93.83 Other pneumothorax (principal); R00.0 Tachycardia, unspecified; F17.210 Nicotine dependence, cigarettes, uncomplicated; K08.9 Disorder of teeth and supporting structures, unspecified
CPT/HCPCS: 31500; 36415; 80053; 87635; 93005; 96374; 96375; 99291; J1650; 71045; 71046; 83735; 83880; 84484; 85025; 85049; 85379; 85610; 85730; 93010; J1885; J2250; J2270; J3010

== ENCOUNTER 2022-02-04 01:24 | Outpatient (CLI) | payer SELFPAY ==
--- NOTE | 2022-02-04 07:00 | DI.RAD_ITS ---
Exam(s) XR CHEST 2V PA LATERAL EXAM: XR CHEST 2V PA LATERAL CLINICAL HISTORY: f/U SPONTANEOUS PNEUMOTHORAX, J93.83, SMOKER, F17.200 TECHNIQUE: 2D digital imaging was performed of the chest. Three images were obtained. PA and later al views were obtained. COMPARISON: CR XR CHEST 2V PA LATERAL from 02/01/2022 FINDINGS: MEDIASTINUM: Normal. HEART: Normal. PULMONARY VASCULATURE: Normal. LUNGS: Clear. PLEURAL SPACE: No pleural effusion or pneumothorax. BONE:Within normal limits for the patient's age. OTHER FINDINGS:Normal. IMPRESSION: No acute pulmonary findings. DATA REPOSITORY: RADIATION DOSE DELIVERED:
== END 2022-02-04 01:44 ==
PROVIDERS: Visit Provider Surgery
DX: F17.200 Nicotine dependence, unspecified, uncomplicated (principal); J93.83 Other pneumothorax
CPT/HCPCS: 71046

== ENCOUNTER 2025-03-19 10:23 | Emergency (ER) | payer SELFPAY ==
[2025-03-19 10:28] VITALS: BP 154/91; PULSE 88; RESP 18; TEMP 36.6; O2SAT 98
[2025-03-19 10:34] VITALS: BP 154/91; PULSE 88; RESP 18; TEMP 36.6; O2SAT 98
--- NOTE | 2025-03-19 10:55 | NUR.NOTE ---
Addendum entered by Lilly Soriano 03/19/25 11:47: Rabies Vaccine Order form faxed to Infusion. Copy given to patient. Follow up dates are 03/20/25, 03/26/25, 04/02/25. Original Note: Animal bite report faxed to [facility]. [facility] Officer; Hany Shukla called and is aware of the report. Nursing Note:
[2025-03-19] MEDS: Rabies vaccine (PCEC)/PF 2.5 UNITS/ML VIAL IM (11:33)
[2025-03-19] MEDS: Rabies Immune Globulin 300 UNIT/ML VIAL 2080 UNIT IM (11:37)
[2025-03-19 11:59] VITALS: BP 150/92; PULSE 88; RESP 14; TEMP 36.7; O2SAT 98
--- NOTE | 2025-03-19 12:31 | W.ED.GENAD ---
Discharge Plan Disposition Patient Disposition: Home Discharge Details Clinical Impression: Dog bite, Laceration of hand, left Primary Care Provider: Unknown,Unknown ED Provider: Ryann Petersen Home Meds and New Rx's Prescriptions: New amoxicillin-pot clavulanate 875-125 mg tablet 1 tab PO BID Qty: 14 0RF Discharge Instructions Additional Instructions: [facility] offers low cost animal vaccines, please call apply to medicaid when you arrive home for potential retroactive coverage return for infusion clinic rabies vaccine administration on days: 03/22, 03/26, 04/02 for rabies vaccine to complete series your next tetanus shot is due on in 2026 please establish with pcp, i've place you on a list (your blood pressure is slightly elevated today) please observe dogs carefully for any abnormal behaviors and call animal control if necessary take the antibiotics as prescribed wash with soap and water daily elevated and decrease use as much as possible return with spreading redness, fever, worsening pain Stand Alone Forms: Portal Information Discharge Data Discharge Date/Time-TO BE ENTERED AT DEPARTURE: 03/19/25 12:13 HPI General Date/Time Provider Initiated Documentation: 03/19/25 10:24. HPI Narrative: Otherwise healthy 29-year-old male presents with report of dog bite to left hand just prior to arrival. He states that his dogs do not typically fight but one of his dogs attacked the other while you are eating and he stuck his hand in between the dogs to break up the fight. He states that dogs are not vaccinated for rabies nor if they have been to the vet. Patient states that the dogs have not been out independently off leash and states they are otherwise acting at baseline. He is able to quarantine and observe them he reports. He denies any additional injuries. He reports 2 lacerations. He is unsure regarding his tetanus he denies any strength or sensation change. Related Data Home Medications Medication Instructions Recorded Confirmed amoxicillin 875 mg-potassium 1 tab PO BID #14 tabs 03/19/25 clavulanate 125 mg tablet Previous Rx's Medication Instructions Recorded amoxicillin 875 mg-potassium 1 tab PO BID #14 tabs 03/19/25 clavulanate 125 mg tablet Allergies Allergy/AdvReac Type Severity Reaction Status Date / Time No Known Allergies Allergy Verified 03/19/25 10:34 General Stated Complaint: AnimalBite MOMO: 4 Exam Narrative Exam Narrative: Left hand with laceration at the dorsal aspect of hand in between the 2nd and 3rd MCPs and a small abrasion to the thenar aspect range of motion and sensation of some intact, approximate horizontal three-quarter inch laceration noted on the dorsal aspect no obvious evidence of joint involvement neurovascularly intact cap refill intact no obvious foreign body. Course Vital Signs Vital signs: Vital Signs Temperature 36.6 C 03/19/25 10:28 Pulse 88 03/19/25 10:28 Respiratory Rate 18 03/19/25 10:28 Blood Pressure 154/91 H 03/19/25 10:28 Pulse Oximetry 98 03/19/25 10:28 Temperature 36.7 C 03/19/25 11:59 Temperature Source Oral 03/19/25 10:34 Pulse 88 03/19/25 11:59 Respiratory Rate 14 03/19/25 11:59 Blood Pressure 150/92 H 03/19/25 11:59 Blood Pressure Position Sitting 03/19/25 10:34 Pulse Oximetry 98 03/19/25 11:59 Oxygen Delivery Method Room Air 03/19/25 10:28 Oxygen Flow Rate 0 03/19/25 10:28 Pain Level 0 03/19/25 11:59 Medical Decision Making Assessment and plan: I had a long discussion with this patient past dog bite as his dogs are unvaccinated and he also does not have primary care doctor. I did confirm that his tetanus is up-to-date. We talked about quarantining the dog's for the next 10 days and should he notice any abnormalities on their behavior he is encouraged to return immediately to initiate rabies vaccine. I did also relay that the rabies vaccine is the most effective if initiated within 72 hours of bite. At this time patient feels uncomfortable quarantining dogs alone and request rabies vaccine series and immunoglobulin. These were initiated and patient will return on the , the and April 02 for remaining vaccines. His tetanus will in 2026 so I did not update tetanus. Patient is encouraged to follow-up with a PCP and I gave him [facility] referral so that he may acquire insurance as he does not currently have health insurance. He is given a prescription for Augmentin for the next 10 days. Return precautions reviewed and patient expressed understanding PFSH All Active Problems (Updated 03/19/25 @ 11:39 by YONATAN Huerta) Laceration of hand, left (Acute) Dog bite (Acute) Poor dentition (Acute) Tobacco dependency (Acute) Medical History (Updated 03/19/25 @ 11:39 by YONATAN Huerta) Bey Gogo lesion (01/18/15) Spontaneous pneumothorax Surgical History (Updated 01/29/22 @ 17:17 by Samantha Martell MD) Status post tonsillectomy (05/28/15) Status post inguinal hernia repair Social History Smoking/Tobacco Use Status: Current every day Tobacco Type: cigarettes Smoking risk assessment performed?: Yes Alcohol Intake: current Alcohol Intake frequency: holidays/special occasions only Drug use: Daily Substance use type: marijuana Do you feel safe at home: Yes Do you feel safe in your relationship?: Yes PAWSS Have you Been Recently Intoxicated or Drunk Within the Last 30 days?: No Have you Ever Experienced Previous Episodes of Alcohol Withdrawal?: No Have you ever Experienced Withdrawal Seizures?: No Have you ever Experienced Delirium Tremens(DT)s?: No Have you ever undergone Alcohol Rehabilitation Treatment (i.e, inpt ot outpatient treatment programs)?: No Have you ever Experienced Blackouts?: No Have you ever Combined Alcohol with other Downers within the last 90 days?: No Have you ever Combined Alcohol with any other Substance of Abuse during the last 90 days?: No Positive Blood Alcohol level on Presentation? [PCS.BAL]: No Evidence of Increased Autonomic Activity (i.e. HR>120, tremor, sweating, agitation, nausea)?: No Result: 0
== END 2025-03-19 12:13 | disposition home or self-care (01) ==
PROVIDERS: Emergency Provider Physician Assistant
DX: S61.452A Open bite of left hand, initial encounter (principal); W54.0XXA Bitten by dog, initial encounter
CPT/HCPCS: 99283 ×2; 90471; 96372; 90375; 90675